=== PATIENT | female | born 1950 | race African-American/Black ===

== ENCOUNTER 2017-06-04 22:49 | Observation (INO) | payer OTHER ==
[~2017-06-04] VITALS: Ht 175.3 cm; Wt 77.2 kg
[2017-06-04 23:42] LABS: HEMATOCRIT 37.4 % (36.0-46.0); HEMOGLOBIN 12.5 G/DL (11.9-15.5); MCH 28.7 PG (29.0-34.0); MCHC 33.4 G/DL (30.0-36.0); MCV 85.8 FL (83-99); PLATELET COUNT 198 K/uL (156-360); RBC DIS.WIDTH-CV 13.4 % (11.8-14.6); RBC DIS.WIDTH-SD 42.2 % (39-53); RED BLOOD COUNT 4.36 M/uL (3.80-5.20); WHITE BLOOD COUNT 5.3 K/uL (4.1-10.2)
[2017-06-05 00:01] LABS: TROP-I INTERPRETATION NEGATIVE; TROPONIN-I 0.02 ng/mL (0.0-0.30)
[2017-06-05 00:27] LABS: CHLORIDE 102 mEq/L (99-109); SODIUM 132 mEq/L (136-147)
[2017-06-05 00:29] LABS: GLUCOSE 81 mg/dL (70-99)
[2017-06-05 00:33] LABS: CREATININE 0.9 mg/dL (0.6-1.3); GFR ESTIMATE (CALCULATED) > 59 mL/min/; UREA NITROGEN (BUN) 5 mg/dL (9-23)
[2017-06-05 00:40] LABS: POTASSIUM ND mEq/L (3.7-5.4)
[2017-06-05 01:25] LABS: POTASSIUM 3.8 mEq/L (3.7-5.4)
[2017-06-05] MEDS ORDERED: [UNRECOGNIZED DRUG - OTHER] PO (01:41)
[2017-06-05] MEDS ORDERED: PROTONIX40 MG PO (01:42)
[2017-06-05] MEDS ORDERED: KETOCONAZOLE120 ML TP (01:44)
[2017-06-05] MEDS ORDERED: LIDEX 0.05% SOL60 ML TP (01:44)
[2017-06-05] MEDS ORDERED: IBUPROFEN600 MG PO (01:44)
[2017-06-05 06:31] LABS: CHLORIDE 109 mEq/L (99-109); POTASSIUM 4.1 mEq/L (3.7-5.4)
[2017-06-05 06:32] LABS: GLUCOSE 91 mg/dL (70-99)
[2017-06-05 06:36] LABS: CREATININE 0.8 mg/dL (0.6-1.3); GFR ESTIMATE (CALCULATED) > 59 mL/min/
[2017-06-05 06:37] LABS: SODIUM 140 mEq/L (136-147); UREA NITROGEN (BUN) 4 mg/dL (9-23)
[2017-06-05 06:41] LABS: TROP-I INTERPRETATION NEGATIVE; TROPONIN-I 0.01 ng/mL (0.0-0.30)
[2017-06-05 11:42] VITALS: BP 119/73
[2017-06-05 12:43] LABS: TROP-I INTERPRETATION NEGATIVE; TROPONIN-I 0.02 ng/mL (0.0-0.30)
== END 2017-06-05 14:26 | disposition home or self-care (01) ==
LOC: EME 22:49 → EDOF 06-05 02:10 → ENRESERV 06-05 02:13 → 5WEST 06-05 11:35 → ENPENDDIS 06-05 13:28 → 5WEST 06-05 14:26
PROVIDERS: Emergency Medicine; Hospitalist
DX: R07.89 Other chest pain (principal); T78.8XXA Other adverse effects, not elsewhere classified, initial encounter; Z86.19 Personal history of other infectious and parasitic diseases; E87.1 Hypo-osmolality and hyponatremia; K21.9 Gastro-esophageal reflux disease without esophagitis; Z85.3 Personal history of malignant neoplasm of breast; D64.9 Anemia, unspecified; F41.9 Anxiety disorder, unspecified; G43.909 Migraine, unspecified, not intractable, without status migrainosus; F32.9 Major depressive disorder, single episode, unspecified; Z87.19 Personal history of other diseases of the digestive system; I34.1 Nonrheumatic mitral (valve) prolapse; I34.0 Nonrheumatic mitral (valve) insufficiency; M19.90 Unspecified osteoarthritis, unspecified site; Z90.13 Acquired absence of bilateral breasts and nipples; Z88.2 Allergy status to sulfonamides; Z82.49 Family history of ischemic heart disease and other diseases of the circulatory system; Z82.0 Family history of epilepsy and other diseases of the nervous system; Z96.651 Presence of right artificial knee joint
CPT/HCPCS: 71046; 80048; 83880; 84484; 84999; 85027; 93005; 99281; 99284; G0378; J7030